=== PATIENT | male | born 1950 | race Caucasian/White ===

== ENCOUNTER → 2016-04-28 | Outpatient (REF) | payer MEDICARE | LOC: M LABDRWAD 12:11 | PROVIDERS: ATTEND Urology | DX: R97.20 Elevated prostate specific antigen [PSA] (principal) ==

== ENCOUNTER → 2017-07-06 | Outpatient (REF) | payer MEDICARE ==
[2017-07-06 13:01] LABS: PROSTATIC SPECIFIC AG MONITOR 2.02 NG/ML (< 4.0)
== END ==
LOC: M LABDRWAD 12:21
DX: Z12.5 Encounter for screening for malignant neoplasm of prostate (principal); Z85.46 Personal history of malignant neoplasm of prostate
CPT/HCPCS: 84153

== ENCOUNTER → 2018-08-04 | Outpatient (CLI) | payer MEDICARE, OTHER ==
[~2018-08-04] MED LIST: ASPI81CH33 PO; BISO5TAB5 PO; LEVO100T5 PO; LIVA2TAB PO; MAGN400T2 PO; PRAM1TAB7 PO; VITAD1000T PO
[2018-08-04 09:35] LABS: INR 0.95; PROTHROMBIN TIME 12.8 SECONDS (12.1-14.4)
[2018-08-04 09:46] LABS: ALBUMIN 3.9 GM/DL (3.2-5.2); ALT/SGPT 40 U/L (12-78); BILIRUBIN,TOTAL 0.8 MG/DL (0.2-1.0); BLOOD UREA NITROGEN 24 MG/DL (7-18); CALCIUM LEVEL 8.8 MG/DL (8.8-10.2); CARBON DIOXIDE LEVEL 29 MEQ/L (21-32); CHLORIDE LEVEL 108 MEQ/L (98-107); GLOMERULAR FILTRATION RATE > 60.0 (>49); GLUCOSE, FASTING 87 MG/DL (70-100); POTASSIUM SERUM 4.4 MEQ/L (3.5-5.1); SODIUM LEVEL 141 MEQ/L (136-145); TOTAL PROTEIN 6.4 GM/DL (6.4-8.2)
[2018-08-04 09:56] LABS: HEMATOCRIT 46.6 % (42.0-52.0); HEMOGLOBIN 15.1 g/dl (13.5-17.5); MEAN CORPUSCULAR HEMOGLOBIN 30.9 pg (27.0-33.0); MEAN CORPUSCULAR HGB CONC 32.4 g/dl (32.0-36.5); MEAN CORPUSCULAR VOLUME 95.5 fl (80.0-96.0); PLATELET COUNT, AUTOMATED 222 10^3/uL (150-450); RED BLOOD COUNT 4.88 10^6/uL (4.30-6.10); WHITE BLOOD COUNT 6.7 10^3/uL (4.0-10.0)
--- NOTE | 2018-08-04 10:22 | REP ---
CHEST X-RAY: TWO VIEWS. HISTORY: Left knee arthritis. COMPARISON STUDY: March 30, 2018 FINDINGS: There is some linear fibrosis in the left lateral pleural angle. The lungs are otherwise well inflated and clear. The pleural angles themselves are sharp. Cardiomediastinal silhouette is unremarkable. There are degenerative changes in the thoracic spine, and there is evidence of arthropathy in the shoulders. IMPRESSION: Linear fibrosis left base. Otherwise no acute disease. Electronically Signed by Bharat Myers MD 08/04/2018 11:13 A
[2018-08-04 11:11] LABS: ERYTHROCYTE SEDIMENTATION RATE 4 mm/hr (0-20)
--- NOTE | 2018-08-04 11:36 | ECGEPIP ---
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
== END ==
LOC: M LAB 08:30
PROVIDERS: ATTEND Orthopaedic Surgery
DX: Z01.818 Encounter for other preprocedural examination (principal); M17.12 Unilateral primary osteoarthritis, left knee; M24.662 Ankylosis, left knee

== ENCOUNTER 2018-08-23 08:30 | Inpatient (IN) | payer MEDICARE, OTHER ==
--- NOTE | 2018-08-15 12:56 | HPE ---
DATE OF ADMISSION: 08/23/2018 HISTORY OF PRESENT ILLNESS: Mr. Montejo is a pleasant 68-year-old male with continued symptomatic with left knee osteoarthritis. He is consented for a left total knee arthroplasty per Dr. Niranjan Murphy. Medical optimization achieved per Dr. Stewart. X-rays are consistent with adv advanced osteoarthritis. ALLERGIES: He has had reactions to STATIN drugs. CURRENT MEDICATION LIST INCLUDES: - aspirin 81 mg, which will be discontinued 5 days preoperatively. - bisoprolol 5 mg daily - Claritin D as needed for allergy symptoms. - levothyroxine 100 mcg daily - Livalo 2 mg once daily - Mag Oxide 400 mg three times a day - naproxen 220 mg two capsules as needed daily. He is reminded to discontinue any of that nonsteroidal anti-inflammatory drugs (NSAID) class medication 5 days preoperatively. - Mirapex 2 tablets at bedtime 1 mg - vitamin D 1000 units. He takes 3000 international units daily MEDICAL PROBLEM LIST INCLUDES: Symptomatic left knee osteoarthritis. Hyperlipidemia. Hypertension. Restless leg syndrome. PAST SURGICAL HISTORY: Quadriceps tendon tear March [address] Long. This was a right-sided quadriceps tendon tear. Colonoscopy by Dr. Jackson in 2008. SOCIAL HISTORY: Denies smoking, occasionally takes alcohol, potentially three glasses of wine a week. 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 Denies illicit drugs. FAMILY HISTORY: He is remarkable for obesity, diabetes, chronic obstructive pulmonary disease (COPD), congestive heart failure (CHF), colon cancer and myocardial infarction (VA). REVIEW OF SYSTEMS: Patient denies chest pain, shortness of breath, dyspnea on exertion, fever, chills, malaise, upper respiratory or urinary tract symptoms. Chest x-ray via [facility] date 08/04/[address] Bharat Myers, Impression: Linear fibrosis left base. No acute disease. EKG: Sinus rhythm with first degree arteriovenous block as ready by Dr. Seth Ba. Labs acquired 08/04/2018: BUN 24, chloride level 108, anion gap 4, otherwise within normal limits. PHYSICAL EXAMINATION: VITALS: Height 6 foot, 6 inches, weight 240, temperature 96.7. This is a pleasant, well-developed, well-nourished 68-year-old male in no acute distress. Alert and oriented times three. Mood and affects are appropriate. He is ambulating without overt antalgic assistance or favoring. His lower extremities: Skin intact, benign, noninfectious-looking. Compartments are supple, soft, nontender to palpation, grossly intact to light touch. Negative calf tenderness. Elly's sign palpable cords. Positive left knee medial joint line tenderness with crepitance about the knee through flexion and extension. Left hip range of motion is not grossly limited or irritable through internal or external range of motion. Bowel soft, nontender times four. Chest rises symmetrically. Regular rate and rhythm. Lungs clear to auscultation. Neck supple. Normal cephalic. IMPRESSION: 1. Left knee symptomatic tricompartmental knee degenerative joint disease (DJD). 2. Patient consented for a left total knee arthroplasty per Dr. Niranjan Murphy. 3. Medical optimization per Dr. Stewart. 4. On-call to operating room (OR) 2 grams IV Kefzol in OR. 5. Sequential compression devices (SCDs) and thromboembolic deterrent stockings (TEDS) in OR. MTDD
[2018-08-23] VITALS (7 sets, daily range): BP systolic 135–164; BP diastolic 76–92; O2SAT 97
[~2018-08-23] VITALS: Ht 190.5 cm; Wt 108.0 kg
[2018-08-23] MEDS ORDERED: LR 1,000 ML IV SCH (12:45)
[2018-08-23] MEDS ORDERED: PROPOFOL 200 MG/20 ML VIAL As Ordered ONE ×2 (12:55→17:12)
[2018-08-23] MEDS ORDERED: dexameTHASONE 4 MG/ML 1ML VIAL (J1100) As Ordered ONE (12:55)
[2018-08-23] MEDS ORDERED: LIDOCAINE 2% INJ 100 MG/5 ML SDV (FOR ANES.) As Ordered ONE (12:55)
[2018-08-23] MEDS ORDERED: MIDAZOLAM INJ 2 MG/2 ML VIAL (J2250) As Ordered ONE ×2 (12:56→14:08)
[2018-08-23] MEDS ORDERED: fentaNYL 100 MCG/2 ML INJECTION (J3010) As Ordered ONE ×2 (12:56→14:08)
[2018-08-23] MEDS ORDERED: BUPIVACAINE HCL 0.5% 30 ML VIAL As Ordered ONE (13:01)
[2018-08-23] MEDS ORDERED: ceFAZolin 1GM INJ (J0690 PER 500MG) As Ordered ONE (14:10)
[2018-08-23] MEDS ORDERED: TRANEXAMIC ACID 100 MG/ML 10ML VIAL As Ordered ONE (14:10)
[2018-08-23] MEDS ORDERED: BUPIVACAINE LIPOSOME/PF 1.3% 20ML VIAL (13.3MG/ML)(EXPAREL)(C9290 PER1MG) As Ordered ONE (14:10)
[2018-08-23] MEDS ORDERED: EPINEPHrine INJ 1 MG/ML 1ML AMP As Ordered ONE (14:10)
--- NOTE | 2018-08-23 14:55 | IPN ---
DATE: 08/23/2018 The patient seen and examined. He wished to go ahead with a left total knee arthroplasty. He understands the nature of procedure, the risks of bleeding, infection, damage to nerves, vessels, persistent pain, wear, loosening, blood clots, medical problems, , among others. Preoperative clearance was obtained.
[2018-08-23] MEDS ORDERED: fentaNYL 100 MCG/2 ML INJECTION (J3010) IV ONE (15:00)
[2018-08-23] MEDS ORDERED: MIDAZOLAM INJ 2 MG/2 ML VIAL (J2250) IV ONE (15:00)
[2018-08-23] MEDS ORDERED: LIDOCAINE 2% JELLY 6 ML SYRINGE As Ordered ONE (16:47)
[2018-08-23] MEDS ORDERED: BUPIVACAINE/DEXTROSE 0.75% 2 ML AMP As Ordered ONE (16:52)
[2018-08-23] MEDS ORDERED: METOCLOPRAMIDE INJ 10MG/2ML VIAL (J2765) IV PRN (18:00)
[2018-08-23] MEDS ORDERED: MORPHINE 4 MG/ML 1ML VIAL/SYRINGE (J2270) IV PRN ×2 (18:00)
[2018-08-23] MEDS ORDERED: ACETAMINOPHEN TAB 650MG DOSE (2X325MG) PO PRN (18:00)
[2018-08-23] MEDS ORDERED: oxyCODONE 5MG TAB PO PRN (18:00)
[2018-08-23] MEDS ORDERED: fentaNYL 100 MCG/2 ML INJECTION (J3010) IV PRN (18:00)
[2018-08-23] MEDS ORDERED: ONDANSETRON 4MG/2ML VIAL (J2405) IV PRN (18:00)
[2018-08-23] MEDS ORDERED: FLEET ENEMA PR PRN (18:00)
--- NOTE | 2018-08-23 18:27 | REP ---
Portable left knee two views: There is a total knee arthroplasty with the components tightly applied and in satisfactory positions alignment. Postsurgical interarticular air is incidentally identified. Skin eriberto are incidentally identified. Electronically Signed by Matt Armando MD 08/23/2018 06:19 P
--- NOTE | 2018-08-23 20:06 | RO ---
DATE OF PROCEDURE: 08/23/2018 PREOPERATIVE DIAGNOSIS: Left knee osteoarthritis. POSTOPERATIVE DIAGNOSIS: Left knee osteoarthritis. PROCEDURE: Left total knee arthroplasty using Attune size 8 femur, size 8 tibial tray, a 6 thickness polyethylene, posterior stabilized, and a 41 patellar button. SURGEON: Niranjan Murphy MD CLOTH CUTTING MACHINE OPERATOR: Taiwo Mcdonough ANESTHESIA: Spinal. ESTIMATED BLOOD LOSS: 50 mL. COMPLICATIONS: None. INDICATIONS: A 68-year-old gentleman who has had some persistent left knee pain. He wished to go ahead with surgical treatment having failed conservative management. He understood the nature and risks associated with this. DESCRIPTION OF PROCEDURE: The patient was taken to the operating room, placed in supine position after spinal anesthesia was induced. The left lower extremity was prepped and draped in the usual sterile fashion. Time-out was performed. Tourniquet was inflated. A longitudinal incision was made over the anterior aspect of the knee. A medial parapatellar arthrotomy was performed per routine. I then everted the patella, used a canal initiating reamer on the femoral side followed by the femoral guide, intramedullary. This was set at a 9 mm cut, 5 degrees of valgus, pinned in place by the child care assistant and then I backed off the block by two more millimeters for an additional cut to the flexion contracture. I then sized it to be an 8. The remaining four cuts were made, protecting soft tissues at all times. Then prepared the tibia. Tibial alignment guide was placed, and the appropriate amount of valgus and posterior slope was dialed in. The proximal tibia cut was made. I then removed soft tissue and osteophytes from either side of the joint. And I elected to go with a posterior stabilized because the posterior cruciate ligament (PCL) was really quite tight, and I felt as though it was going to interfere with our tissue balancing so the box cutting guide was then placed and the box cut was made. PCL had been removed. We then prepared the tibial surface, drilled and broached. Spacer blocks were then used, and I decided on a size 6 spacer block. The tibia had been prepared with the 8 tibial tray, which was then drilled and broached. Trial components were placed and put the knee through a range of motion. Excellent stability and excellent range of motion were noted. The patella was then freehand cut removing about 7 or 8 mm of bone. The patella was sized to be a 41. The drill holes were placed and drill holes were placed in end of the femur. I then put the trial patella on, put the knee through range of motion. I was very pleased with the stability and alignment and range of motion of the knee. Components fit very well. I removed the trial components, the child care assistant prepared the bone cement in the modern technique. I then irrigated copiously, placed the Exparel in the deep tissues. Surfaces were carefully dried and cemented on the tibial tray. The femoral component removed, excess bone cement placed with polyethylene and cemented on the patella, removed all excess bone cement, brought the knee out in extension and knee was copiously irrigated, followed by TXA solution. I then began closing the deep layer with a #1 Vicryl suture, irrigated again the deep layer and then did two running Stratafix sutures in opposite directions for watertight wound closure. I then irrigated, closed the subcu with #2-0 Vicryl, the skin with eriberto. Sterile dressing was applied. Tourniquet had been deflated. He was taken to the recovery room in stable condition. There were no known complications. The child care assistant was instrumental in holding retractors and mixing the bone cement, making one of bone cuts, and wound closure.
--- NOTE | 2018-08-23 20:14 | CR.PDOC ---
General Date of Consultation: August 23, 2018 Consultation REASON FOR CONSULTATION/CHIEF COMPLAINT: Medical management/L. knee arthroplasty HISTORY OF PRESENT ILLNESS: Patient is a Ext[place] 8-year-old male past medical history of left knee osteoarthritis, hypertension, hypothyroidism presented to the hospital for a left total knee arthroplasty due to persistent knee pain. Patient underwent procedure today and tolerated well currently denying any complaints and reports very minimal discomfort over the left knee. He stated he has been eating fine and pain is tolerable with current regimen. PAST MEDICAL HISTORY: Refer to HPI PAST SURGICAL HISTORY: Right quad tendon tear repair SOCIAL HISTORY: Denies tobacco, alcohol or illicit drug use. FAMILY HISTORY: Father had colon cancer Mother had breast cancer, CHF, COPD and DM ALLERGIES: Please see below. REVIEW OF SYSTEMS: 10 point review of system negative except as stated in HPI HOME MEDICATIONS: Please see below. PHYSICAL EXAMINATION: General: No acute distress, Alert Eyes: Normal sclera, EOMI, NO HENT: Atraumatic, neck supple, moist mucous membranes Cardiovascular: Normal rate, normal rhythm. No murmurs appreciated. Pulmonary: Clear to auscultation b/l, no wheezing GI: Soft, nontender, nondistended Skin: Warm and dry MSK: L. knee with overlying bandage clean and dry. Neuro: CN grossly intact. No focal deficits. Strengths equal b/l. Psych: oriented x 3 LABORATORY DATA: See below. MICROBIOLOGY: Please see below. ASSESSMENT AND PLAN: 1. L. knee OA s/p L. TKA - TKA on 08/[address] Murphy. - Pain control. - PT/OT as tolerated. 2. HTN - Resume home meds. Monitor BP. 3. Hypothyroidism - resume home medications. 4. HLD - resume home meds. DVT ppx: Xarelto Vital Signs/I&O Vital Signs Date Time Temp Pulse Resp B/P (MAP) Pulse Ox O2 Delivery O2 Flow Rate FiO2 08/23/18 19:00 95.4 68 15 164/92 (116) 98 08/23/18 15:17 2 Allergies Coded Allergies: chlorhexidine (Verified Allergy, Intermediate, ITCHY SKIN, FINE RASH ON ARMS AFTER USING 4 % WIPES, 08/23/18) Florhmu-Htp-Qxq Reductase Inhibitor (Verified Adverse Reaction, Intermediate, muscle aches, 07/25/18) Home Medications Scheduled Aspirin (Aspirin) 81 Mg Tab.chew, 81 MG PO DAILY, (Reported) Bisoprolol Fumarate (Bisoprolol Fumarate) 5 Mg Tablet, 5 MG PO DAILY, (Reported) Levothyroxine Sodium (Levothyroxine Sodium) 100 Mcg Tablet, 100 MCG PO DAILY, (Reported) Magnesium Oxide (Magnesium Oxide) 400 Mg Tablet, 1,200 MG PO DAILY, (Reported) Pitavastatin Calcium (Livalo) 2 Mg Tablet, 2 MG PO DAILY, (Reported) Pramipexole Di-HCl (Pramipexole Dihydrochloride) 1 Mg Tablet, 2 MG PO QHS, (Reported) Vitamin D (Vitamin D3) 1,000 Unit Tablet, 5,000 UNITS PO DAILY, (Reported) CORA LÓPEZ MD August 23, 2018 20:14
[2018-08-23] MEDS: PRAMIPEXOLE 1 MG TAB PO SCH (20:49)
[2018-08-23] MEDS: LR 1,000 ML IV SCH (20:49)
[2018-08-23] MEDS: PERCOCET 5MG/325MG TAB PO PRN (20:49)
[2018-08-24] VITALS (7 sets, daily range): BP systolic 118–138; BP diastolic 65–86; O2SAT 96
[2018-08-24] MEDS: LEVOTHYROXINE 100MCG TABLET (0.1MG) PO SCH (05:58)
[2018-08-24] MEDS: LR 1,000 ML IV SCH (05:59)
[2018-08-24] MEDS ORDERED: ONDANSETRON 4 MG TAB (S0181) PO PRN (06:15)
[2018-08-24 06:34] LABS: HEMATOCRIT 41.6 % (42.0-52.0); HEMOGLOBIN 13.8 g/dl (13.5-17.5); MEAN CORPUSCULAR HEMOGLOBIN 30.7 pg (27.0-33.0); MEAN CORPUSCULAR HGB CONC 33.2 g/dl (32.0-36.5); MEAN CORPUSCULAR VOLUME 92.4 fl (80.0-96.0); PLATELET COUNT, AUTOMATED 230 10^3/uL (150-450); WHITE BLOOD COUNT 14.7 10^3/uL (4.0-10.0)
[2018-08-24] MEDS: ASPIRIN 81 MG ENTERIC TAB PO SCH (08:49)
[2018-08-24] MEDS: MAGNESIUM OXIDE 400 MG TAB (MAG-OX) PO SCH (08:49)
[2018-08-24] MEDS: VITAMIN D 1,000 INTERNATIONAL UNITS TABLET PO SCH (08:50)
[2018-08-24] MEDS: BISOPROLOL FUMARATE 5 MG TAB PO SCH (08:50)
[2018-08-24] MEDS: MIRALAX *UNIT DOSE* 17GM PACKET PO SCH (08:50)
[2018-08-24] MEDS: MOM 30ML SUSPENSION UDC PO SCH (08:57)
[2018-08-24 08:58] LABS: BLOOD UREA NITROGEN 23 MG/DL (7-18); CALCIUM LEVEL 8.1 MG/DL (8.8-10.2); CARBON DIOXIDE LEVEL 26 MEQ/L (21-32); CHLORIDE LEVEL 107 MEQ/L (98-107); GLOMERULAR FILTRATION RATE > 60.0 (>49); GLUCOSE, FASTING 124 MG/DL (70-100); POTASSIUM SERUM 4.5 MEQ/L (3.5-5.1); SODIUM LEVEL 142 MEQ/L (136-145)
[2018-08-24] MEDS: PERCOCET 5MG/325MG TAB PO PRN ×2 (09:52→16:44)
--- NOTE | 2018-08-24 16:19 | IPNPDOC ---
Date Seen The patient was seen on 08/24/18. Progress Note SUBJECTIVE: Patient reported feeling fine this morning Has been walking to chair. Denies any significant discomfort, pain well- controlled. OBJECTIVE PHYSICAL EXAMINATION: VITAL SIGNS: Please see below. Eyes: Normal sclera, EOMI, NO HENT: Atraumatic, neck supple, moist mucous membranes Cardiovascular: Normal rate, normal rhythm. No murmurs appreciated. Pulmonary: Clear to auscultation b/l, no wheezing GI: Soft, nontender, nondistended Skin: Warm and dry MSK: L. knee with overlying bandage clean and dry. Neuro: CN grossly intact. No focal deficits. Strengths equal b/l. Psych: oriented x 3 LABORATORY DATA, IMAGING STUDIES, MICROBIOLOGY: Please see below. DVT prophylaxis ordered?: Roseanne ASSESSMENT AND PLAN: 1. L. knee OA s/p L. TKA - TKA on 08/[address] Murphy. - Pain control. - PT/OT as tolerated. 2. HTN - Resume home meds. Monitor BP. 3. Hypothyroidism - resume home medications. 4. HLD - resume home meds. DVT ppx: Xarelto A-FIB/CHADSVASC A-FIB History Current/History of A-Fib/PAF?: No VS, I&O, 24H, Fishbone Vital Signs/I&O Vital Signs Date Time Temp Pulse Resp B/P (MAP) Pulse Ox O2 Delivery O2 Flow Rate FiO2 08/24/18 14:00 97.8 70 16 131/65 (87) 97 08/24/18 09:00 Room Air 08/23/18 15:17 2 I&O- Last 24 Hours up to 6 AM 08/24/18 06:00 Intake Total 1960 ml Output Total 725 ml Balance 1235 ml Laboratory Data 24H LABS Laboratory Tests 2 08/24/18 00:00: Anion Gap 9, Glomerular Filtration Rate > 60.0, Blood Urea Nitrogen 23H, Creatinine 1.10, Sodium Level 142, Potassium Level 4.5, Chloride Level 107, Carbon Dioxide Level 26, Calcium Level 8.1L 08/24/18 05:58: Nucleated Red Blood Cells % (auto) 0.0 CBC/BMP Laboratory Tests 08/24/18 00:00 Calcium Level 8.1 L 08/24/18 05:58 Red Blood Count 4.50, Mean Corpuscular Volume 92.4, Mean Corpuscular Hemoglobin 30.7, Mean Corpuscular Hemoglobin Concent 33.2, Red Cell Distribution Width 12.7 CORA LÓPEZ MD August 24, 2018 16:19
[2018-08-24] MEDS ORDERED: RIVAROXABAN 10 MG TAB (XARELTO) PO SCH (18:00)
[2018-08-24] MEDS: PRAMIPEXOLE 1 MG TAB PO SCH (21:58)
[2018-08-25] MEDS: PERCOCET 5MG/325MG TAB PO PRN ×2 (00:37→08:48)
[2018-08-25 02:00] VITALS: BP 139/71
[2018-08-25] MEDS: LEVOTHYROXINE 100MCG TABLET (0.1MG) PO SCH (05:57)
[2018-08-25 06:00] VITALS: BP 140/75
[2018-08-25 06:22] LABS: HEMATOCRIT 40.7 % (42.0-52.0); HEMOGLOBIN 13.2 g/dl (13.5-17.5); MEAN CORPUSCULAR HEMOGLOBIN 30.6 pg (27.0-33.0); MEAN CORPUSCULAR HGB CONC 32.4 g/dl (32.0-36.5); MEAN CORPUSCULAR VOLUME 94.2 fl (80.0-96.0); PLATELET COUNT, AUTOMATED 218 10^3/uL (150-450); RED BLOOD COUNT 4.32 10^6/uL (4.30-6.10); WHITE BLOOD COUNT 11.8 10^3/uL (4.0-10.0)
[2018-08-25 06:50] LABS: BLOOD UREA NITROGEN 22 MG/DL (7-18); CALCIUM LEVEL 8.2 MG/DL (8.8-10.2); CARBON DIOXIDE LEVEL 30 MEQ/L (21-32); CHLORIDE LEVEL 105 MEQ/L (98-107); CREATININE FOR GFR 1.18 MG/DL (0.70-1.30); GLOMERULAR FILTRATION RATE > 60.0 (>49); GLUCOSE, FASTING 105 MG/DL (70-100); POTASSIUM SERUM 4.2 MEQ/L (3.5-5.1); SODIUM LEVEL 139 MEQ/L (136-145)
[2018-08-25] MEDS: MOM 30ML SUSPENSION UDC PO SCH (08:45)
[2018-08-25] MEDS: MIRALAX *UNIT DOSE* 17GM PACKET PO SCH (08:46)
[2018-08-25] MEDS: VITAMIN D 1,000 INTERNATIONAL UNITS TABLET PO SCH (08:46)
[2018-08-25 08:47] VITALS: BP 140/75
[2018-08-25] MEDS: MAGNESIUM OXIDE 400 MG TAB (MAG-OX) PO SCH (08:47)
[2018-08-25] MEDS: BISOPROLOL FUMARATE 5 MG TAB PO SCH (08:47)
[2018-08-25] MEDS: ASPIRIN 81 MG ENTERIC TAB PO SCH (08:47)
[2018-08-25] MEDS ORDERED: ACET1TAB55 PO (11:19)
[2018-08-25] MEDS ORDERED: OXYC1TAB23 PO (11:19)
[2018-08-25] MEDS ORDERED: XARE10TA PO (11:19)
--- NOTE | 2018-08-26 14:47 | DSES ---
DATE OF ADMISSION: 08/23/2018 DATE OF DISCHARGE: 08/25/2018 DISCHARGE DIAGNOSIS: Left knee arthritis status post left total knee arthroplasty. HISTORY: This is a 68-year-old male with progressively worsening left knee pain and stiffness. He had failed to improve with conservative treatment. He has elected for surgery for his continued symptoms. PROCEDURE PERFORMED: Left total knee arthroplasty. HOSPITAL COURSE: The patient was admitted on the day of surgery and underwent left total knee arthroplasty that was without complications. The patient's hospital course was without complications as well. The patient was up with physical therapy per their protocol and her pain was controlled. On the day of discharge, the patient was doing well. He was weightbearing as tolerated to his left lower extremity, using his walker. He will resume preoperative medications and diet. He will use oral medications for pain control. He will use Xarelto for 2 weeks and QUETA stockings for 30 days for deep vein thrombosis (DVT) prophylaxis. Additionally, he will followup in the office in 2 weeks for wound check and staple removal. For further details, please refer to the medical record.
== END 2018-08-25 11:30 | disposition home or self-care (01) | DRG 470 ==
LOC: M OR 12:29 → M MS5PR 18:30
PROVIDERS: ADMIT Orthopaedic Surgery; ATTEND Orthopaedic Surgery
PROC: 0SRD0J9 Replacement of Left Knee Joint with Synthetic Substitute, Cemented, Open Approach (ICD-10-PCS; principal; 2018-08-23 15:00)
DX: M17.12 Unilateral primary osteoarthritis, left knee (principal); Z79.82 Long term (current) use of aspirin; Z79.899 Other long term (current) drug therapy; E78.5 Hyperlipidemia, unspecified; I10 Essential (primary) hypertension; G25.81 Restless legs syndrome; E03.9 Hypothyroidism, unspecified

== ENCOUNTER → 2018-08-30 | Outpatient (CLI) | payer MEDICARE, OTHER ==
[~2018-08-30] MED LIST changes: +ACET1TAB55 PO; +OXYC1TAB23 PO; +XARE10TA PO
--- NOTE | 2018-08-30 18:26 | REPVR ---
EXAM: US Duplex Left Lower Extremity Veins, Limited EXAM DATE/TIME: 08/30/2018 6:14 PM CLINICAL HISTORY: 68 years old, male; Pain; Leg, lower; Left; Prior surgery; Surgery date: <1 month; Surgery type: Knee surgery; Additional info: Pain in left leg, R/O dvt post op. TECHNIQUE: Imaging protocol: Real-time Duplex ultrasound of the Left Lower Extremity with 2-D mcnulty scale, color Doppler flow and spectral waveform analysis. Limited exam focused on the left lower extremity veins. COMPARISON: No relevant prior studies available. FINDINGS: Left deep veins: Unremarkable. The common femoral, femoral, proximal profunda femoral and popliteal veins are patent without thrombus. Normal Doppler waveforms. Normal compressibility and/or augmentation response. Left superficial veins: Unremarkable. Saphenofemoral junction is patent without thrombus. Soft tissues: Lower leg edema. IMPRESSION: Lower leg edema. No DVT. Electronically signed by: Gilberto Jimenez On 08/30/2018 18:26:22 PM
== END ==
LOC: M RAD 17:42
PROVIDERS: ATTEND Physician Assistant
DX: R60.0 Localized edema (principal); Z47.89 Encounter for other orthopedic aftercare; Z96.652 Presence of left artificial knee joint

== ENCOUNTER → 2018-11-04 | Outpatient (CLI) | payer MEDICARE, OTHER ==
--- NOTE | 2018-11-09 08:59 | SLEEPCENT ---
DATE OF PROCEDURE: 11/04/2018 ORDERED BY: SHAUN Anton Nocturnal polysomnography was performed for titration of pressure therapy in this patient with severe obstructive sleep apnea syndrome. Apnea-hypopnea index 57.1. For testing a Jeny, Simplus full-face mask of medium size was used; initial pressure of 4 cm of water pressure was applied to the circuit and the lights were extinguished. 7 hours and 58 minutes of data were reviewed. There were 411 minutes of sleep identified. Sleep latency was short at 2.5 minutes. Rapid eye movement (REM) latency was short at 63 minutes. Sleep architecture improved with some persistent fragmentation but there were 4 REM cycles noted. Overall sleep efficiency 87.7%. The patient's electrocardiogram showed a sinus rhythm with an average heart rate of 56 beats per minute. Electroencephalogram (EEG) showed normal waveforms for awake and sleep. Persistence of respiratory events prompted an increase in CPAP pressure. Despite optimal mask fit and minimal air leak, the patient required change to a bilevel device. Best sleep was seen on bilevel pressure therapy inspiratory 22 over expiratory of 18. Some limb activity was noted scattered over the course of study. The patient's limb movement arousal index was only 5.1. IMPRESSION: Severe obstructive sleep apnea syndrome (G47.33). RECOMMENDATIONS: Nightly use of pressure therapy via bilevel device inspiratory pressure 22 over expiratory pressure of 18.
== END ==
LOC: M SLEEP 19:43
PROVIDERS: ATTEND Nurse Practitioner Family
DX: G47.33 Obstructive sleep apnea (adult) (pediatric) (principal)

== ENCOUNTER → 2019-08-08 | Outpatient (CLI) | payer MEDICARE, OTHER ==
[~2019-08-08] MED LIST changes: +ASPI81TA85 PO; +BISO5TAB14 PO; -BISO5TAB5 PO; +CHOL100029 PO; +NYSTOI TOP; +SYNT75TA PO; +VESI5TAB2 PO; -VITAD1000T PO
== END ==
LOC: M LABSMTC 12:10
PROVIDERS: ATTEND Family Medicine
DX: Z01.818 Encounter for other preprocedural examination (principal); Z11.59 Encounter for screening for other viral diseases

== ENCOUNTER 2019-08-09 13:29 | Day surgery (SDC) | payer MEDICARE, OTHER ==
[~2019-08-09] VITALS: Ht 190.5 cm; Wt 110.2 kg
[~2019-08-09 13:29] MED LIST changes: +LIDOCAINE 2% 100MG/5ML SDV (FOR ANES.) As Ordered ONE; +NS 1,000 ML IV ONE; +propofoL 200 MG/20 ML VIAL As Ordered ONE
[2019-08-09] MEDS ORDERED: propofoL 200 MG/20 ML VIAL As Ordered ONE (14:49)
--- NOTE | 2019-08-09 15:20 | ROOR ---
Patient Name: Thiago Adair Procedure Date: 08/09/2019 2:52 PM Date of : 1950 Age: 68 Room: [facility] Gender: Male Note Status: Finalized Procedure: Total Colonoscopy to Cecum Indications: Colon cancer screening in patient at increased risk: Colorectal cancer in father, Last colonoscopy: 2014 Providers: Garcia Jackson MD Referring MD: Brenda Stewart DO Requesting Provider: Medicines: Monitored Anesthesia Care Complications: No immediate complications. Procedure: Pre-Anesthesia Assessment: - The heart rate, respiratory rate, oxygen saturations, blood pressure, adequacy of pulmonary ventilation, and response to care were monitored throughout the procedure. The Colonoscope was introduced through the anus and advanced to the cecum, identified by appendiceal orifice and ileocecal valve. The colonoscopy was performed without difficulty. The patient tolerated the procedure well. The quality of the bowel preparation was excellent. Findings: The perianal and digital rectal examinations were normal. Non-bleeding internal hemorrhoids were found during retroflexion. The hemorrhoids were small and Grade I (internal hemorrhoids that do not prolapse). No other significant abnormalities were identified in a careful examination of the remainder of the colon. The exam was otherwise without abnormality on direct and retroflexion views. Impression: - Non-bleeding internal hemorrhoids. - The examination was otherwise normal on direct and retroflexion views. - No specimens collected. - The exam was otherwise normal to the cecum. Recommendation: - Patient has a contact number available for emergencies. The signs and symptoms of potential delayed complications were discussed with the patient. Return to normal activities tomorrow. Written discharge instructions were provided to the patient. - High fiber diet. - Discharge patient to home. - Continue present medications. - Repeat colonoscopy in 5 years for screening purposes. - Return to referring physician. - The findings and recommendations were discussed with the patient's family. Garcia Jackson MD Garcia Jackson MD 08/09/2019 3:19:31 PM Electronically signed by Garcia Jackson MD Number of Addenda: 0 Note Initiated On: 08/09/2019 2:52 PM Estimated Blood Loss: Estimated blood loss: none.
[2019-08-09 15:55] VITALS: BP 112/59
== END 2019-08-09 16:40 | disposition home or self-care (01) ==
LOC: M OPP 13:29
PROVIDERS: ATTEND Internal Medicine Gastroenterology
DX: Z12.11 Encounter for screening for malignant neoplasm of colon (principal); Z80.0 Family history of malignant neoplasm of digestive organs; K64.0 First degree hemorrhoids; G47.30 Sleep apnea, unspecified; I10 Essential (primary) hypertension; Z79.82 Long term (current) use of aspirin; Z79.899 Other long term (current) drug therapy; Z88.8 Allergy status to other drugs, medicaments and biological substances

== ENCOUNTER → 2021-03-27 | Outpatient (CLI) | payer MEDICARE, OTHER ==
[~2021-03-27] MED LIST changes: -ASPI81TA85 PO; +ASPI81TA86 PO; -LIDOCAINE 2% 100MG/5ML SDV (FOR ANES.) As Ordered ONE; -NS 1,000 ML IV ONE; -propofoL 200 MG/20 ML VIAL As Ordered ONE
--- NOTE | 2021-03-27 11:10 | REP ---
INDICATION: LOW BACK PAIN COMPARISON: None. TECHNIQUE: AP, lateral, bilateral oblique, and coned-down views of the lumbar spine. FINDINGS: Alignment and lordosis maintained. No acute fracture/compression injury or subluxation. Moderate to advanced multilevel degenerative changes include endplate sclerosis, osteophytosis, disc space narrowing and facet hypertrophy. No obvious spondylolysis or spondylolisthesis. IMPRESSION: Advanced multilevel degenerative spondylosis. <Electronically signed by Billy Andrade > 03/27/21 [id number]
[2021-03-27 12:48] LABS: C REACTIVE PROTEIN QUANTITATIV 1.82 MG/DL (0.00-0.30); URIC ACID 5.5 MG/DL (3.5-7.2)
== END ==
LOC: M WUC 10:19
PROVIDERS: ATTEND Internal Medicine
DX: M25.562 Pain in left knee (principal); I10 Essential (primary) hypertension; M25.78 Osteophyte, vertebrae; M47.817 Spondylosis without myelopathy or radiculopathy, lumbosacral region; M51.27 Other intervertebral disc displacement, lumbosacral region

== ENCOUNTER → 2022-05-19 | Outpatient (REF) | payer MEDICARE, OTHER | LOC: M SFHCADAM 10:09 | PROVIDERS: ATTEND Nurse Practitioner Women's Health | DX: Z12.5 Encounter for screening for malignant neoplasm of prostate (principal) ==

== ENCOUNTER → 2023-07-13 | Outpatient (REF) | payer MEDICARE, OTHER ==
[~2023-07-13] MED LIST changes: +NYST100085 TOP; -NYSTOI TOP
== END ==
LOC: M SFHCADAM 13:22
PROVIDERS: ATTEND Urology
DX: N40.0 Benign prostatic hyperplasia without lower urinary tract symptoms (principal); Z12.5 Encounter for screening for malignant neoplasm of prostate

== ENCOUNTER → 2024-02-07 | Outpatient (REF) | payer MEDICARE, OTHER ==
[2024-02-07 14:25] LABS: ALBUMIN 3.7 G/DL (3.2-5.2)
[2024-02-07 14:32] LABS: BASO % 0.4 % (0.0-1.0); EOS # 0.2 10^3/uL (0.0-0.5); HEMOGLOBIN 14.5 g/dl (13.5-17.5); LYMPH # 1.5 10^3/uL (1.5-5.0); MEAN CORPUSCULAR HEMOGLOBIN 31.1 pg (27.0-33.0); MEAN CORPUSCULAR HGB CONC 32.2 g/dl (32.0-36.5); MEAN CORPUSCULAR VOLUME 96.6 fl (80.0-96.0); MONO # 1.1 10^3/uL (0.0-0.8); MONO % 15.6 % (2.0-8.0); NEUTROPHILS # 4.2 10^3/uL (1.5-8.5); NEUTROPHILS % 59.6 % (36.0-66.0); PERCENT SATURATION 26.6 % (19.7-50.0); PLATELET COUNT, AUTOMATED 218 10^3/uL (150-450); RED BLOOD COUNT 4.66 10^6/uL (4.30-6.10); WHITE BLOOD COUNT 7.1 10^3/uL (4.0-10.0)
[2024-02-07 14:34] LABS: FERRITIN 76.4 NG/ML (10.5-307.3)
== END ==
LOC: M LABDRWAD 13:25
PROVIDERS: ATTEND Orthopaedic Surgery
DX: M17.11 Unilateral primary osteoarthritis, right knee (principal); Z01.818 Encounter for other preprocedural examination; M25.561 Pain in right knee

== ENCOUNTER → 2024-03-02 | Outpatient (REF) | payer MEDICARE, OTHER ==
[2024-03-02 13:05] LABS: INR 0.92; PARTIAL THROMBOPLASTIN TIME 28.6 SECONDS (24.8-34.2); PROTHROMBIN TIME 12.7 SECONDS (12.5-14.5)
== END ==
LOC: M LAB REF 12:24
PROVIDERS: ATTEND Internal Medicine
DX: Z01.818 Encounter for other preprocedural examination (principal)

== ENCOUNTER → 2024-04-19 | Outpatient (REF) | payer MEDICARE, OTHER | LOC: M LAB REF 12:03 | PROVIDERS: ATTEND Internal Medicine | DX: M17.11 Unilateral primary osteoarthritis, right knee (principal) ==

== ENCOUNTER → 2024-07-17 | Outpatient (REF) | payer MEDICARE, OTHER | LOC: M LABSMT 14:49 | PROVIDERS: ATTEND Urology | DX: Z12.5 Encounter for screening for malignant neoplasm of prostate (principal) ==

== ENCOUNTER 2024-08-14 09:31 | Day surgery (SDC) | payer MEDICARE, OTHER ==
[~2024-08-14] VITALS: Ht 190.5 cm; Wt 114.1 kg
[~2024-08-14 09:31] MED LIST changes: +MIRA50TA2 PO; +TAMS1CAP17 PO
[2024-08-14] MEDS ORDERED: DOXY100C3 PO (10:18)
[2024-08-14 11:31] VITALS: TEMP 97
[2024-08-14 12:00] VITALS: BP 132/79; O2SAT 95
== END 2024-08-14 12:14 | disposition home or self-care (01) ==
LOC: M OPP 09:31
PROVIDERS: ATTEND Internal Medicine Gastroenterology
DX: Z12.11 Encounter for screening for malignant neoplasm of colon (principal); K57.30 Diverticulosis of large intestine without perforation or abscess without bleeding; K64.0 First degree hemorrhoids; Z80.0 Family history of malignant neoplasm of digestive organs; G47.30 Sleep apnea, unspecified; Z88.8 Allergy status to other drugs, medicaments and biological substances; Z79.899 Other long term (current) drug therapy